=== PATIENT | female | born 1970 | race Caucasian/White ===

== ENCOUNTER 2021-04-21 13:03 | Emergency (ER) | payer OTHER ==
[~2021-04-21] VITALS: Ht 170.2 cm; Wt 90.9 kg
[2021-04-21 13:08] VITALS: BP 141/85; Ht 170.2 cm; Wt 90.9 kg
[2021-04-21] MEDS ORDERED: VOLTAREN75 MG PO (13:51)
[2021-04-21] MEDS ORDERED: HYDROCODON-ACE1 EAC7 PO (13:51)
== END 2021-04-21 14:13 | disposition home or self-care (01) ==
LOC: D.ER 13:03
DX: M25.511 Pain in right shoulder (principal); S42.301A Unspecified fracture of shaft of humerus, right arm, initial encounter for closed fracture; W19.XXXA Unspecified fall, initial encounter